=== PATIENT | female | born 1975 | race Caucasian/White ===

== ENCOUNTER 2019-07-24 09:31 | Emergency (ER) | payer SELFPAY ==
--- NOTE | 2019-07-24 10:01 | ER Document Report ---
ED General - General Chief Complaint: Chest Pain Stated Complaint: CHEST PAIN Time Seen by Provider: 07/24/19 09:46 Primary Care Provider: [facility] [Provider Group] - Follow up as needed [facility] [Provider Group] - Follow up as needed DAVON SIMMONS MD [ACTIVE STAFF] - Follow up as needed Notes: Patient is a 43-year-old female with a history of Crohn's, kidney stones who presents to the emergency department with a weird sensation to her heart. Patient reports over the past few days she feels like her heart is skipping beats. Patient reports she does have a history of low potassium and does take 6 potassium pills per day. Patient reports since having her ileum removed from her Crohn's she has had difficulty regulating her potassium, B12 and vitamin D. Patient reports this morning the palpitations and weird sensation in her heart were worse. Patient reports she felt clammy and hot. Patient reports she does have a history of panic attacks but that this feels different. Patient does report some shortness of breath. Patient states she recently moved to the area over the past few months and does not have a primary care physician or a wet trimmer here. Patient reports she was hospitalized 3 times in [place] for her low potassium. Patient denies a history of cardiac issues just palpitations that she was told was from the potassium level. Patient reports due to her Crohn's she does have about 20 episodes of diarrhea per day and that this is normal for her. - Related Data Allergies/Adverse Reactions: No Known Allergies Allergy (Unverified 07/24/19 09:57) Past Medical History - General Information source: Patient - Social History Smoking Status: Unknown if Ever Smoked Lives with: Family Family History: None - Past Medical History Cardiac Medical History: Reports: None Pulmonary Medical History: Reports: None EENT Medical History: Reports: None Neurological Medical History: Reports: None Endocrine Medical History: Reports: None Renal/ Medical History: Reports: Hx Kidney Stones Malignancy Medical History: Reports: None GI Medical History: Reports: Hx Crohn's Disease Musculoskeletal Medical History: Reports None Skin Medical History: Reports None Psychiatric Medical History: Reports: Other - Panic attacks Traumatic Medical History: Reports: None Infectious Medical History: Reports: None Past Surgical History: Reports: Other - Ileum removed d/t crohns Review of Systems - Review of Systems Constitutional: No symptoms reported EENT: No symptoms reported Cardiovascular: See HPI Respiratory: See HPI Gastrointestinal: See HPI Genitourinary: No symptoms reported Female Genitourinary: No symptoms reported Musculoskeletal: No symptoms reported Skin: No symptoms reported Hematologic/Lymphatic: No symptoms reported Neurological/Psychological: No symptoms reported Physical Exam - Vital signs Vitals: Temp 97.8 F 07/24/19 10:09 - Notes Notes: GENERAL: Well-appearing, well-nourished and in no acute distress. HEAD: Atraumatic, normocephalic. EYES: Pupils equal round and reactive to light, extraocular movements intact, sclera anicteric, conjunctiva are normal. ENT: Nares patent, oropharynx clear without exudates. Moist mucous membranes. NECK: Normal range of motion, supple without lymphadenopathy or JVD. LUNGS: Breath sounds clear to auscultation bilaterally and equal. No wheezes rales or rhonchi. HEART: Regular rate and rhythm without murmurs, rubs or gallops. ABDOMEN: Soft, nontender, normoactive bowel sounds. No guarding, no rebound. No masses appreciated. BACK: No cervical, thoracic, lumbar midline tenderness. No saddle anesthesia, normal distal neurovascular exam. GENITOURINARY: Deferred. EXTREMITIES: Normal range of motion, no pitting or edema. No clubbing or cyanosis. NEUROLOGICAL: Cranial nerves II through XII grossly intact. Normal speech, normal gait. PSYCH: Normal mood, normal affect. SKIN: Warm, Dry, normal turgor, no rashes or lesions noted. Course - Re-evaluation Re-evalutation: 07/24/19 10:00 Upon initial assessment patient sitting upright on a stretcher. Patient is able to talk in clear full complete sentences. Patient reports she feels like she is having palpitations and a weird sensation to her heart like it is skipping beats. Patient denies chest pain. Patient currently in a sinus rhythm with a heart rate of 75 with no ectopy. Will obtain basic labs and cardiac work-up. 07/24/19 11:25 Upon reevaluation patient is resting comfortably on stretcher. Still waiting on the patient's TSH and urinalysis to result. Patient's blood work was unremarkable including the potassium level which was normal. Patient reports feeling much better and that the symptoms have since improved. Patient denies palpitations or chest pain. 07/24/19 12:18 Patient continues to deny chest pain or palpitations. Patient's lab work was unremarkable including TSH. Patient reports she does not have [place] insurance as of yet. Patient reports she has been traveling back to [place] to see her primary in the [facility] for her Crohn's and medications. Patient remains in a sinus rhythm with a heart rate of 60. Patient is normotensive, patient is not tachycardic, tachypneic or hypoxic. - Vital Signs Vital signs: Temp Pulse Resp BP Pulse Ox 98.5 F 17 113/78 97 07/24/19 13:01 07/24/19 13:01 07/24/19 13:01 07/24/19 13:01 - Laboratory Result Diagrams: 07/24/19 09:55 07/24/19 09:55 Laboratory results interpreted by me: 07/24/19 07/24/19 07/24/19 09:55 09:55 11:19 RBC 5.50 H Hgb 15.7 H Carbon Dioxide 19 L Anion Gap 22 H Calcium 8.3 L Urine Blood SMALL H Patient's laboratory findings were unremarkable and did not show a leukocytosis, anemia, alteration in electrolytes. Her potassium was specifically a 4.3. Patient's magnesium was also normal. Patient's TSH within normal limits. Urinalysis unremarkable. Laboratory 07/24/19 07/24/19 07/24/19 09:55 09:55 09:55 WBC 8.6 RBC 5.50 H Hgb 15.7 H Hct 45.7 MCV 83 MCH 28.6 MCHC 34.4 RDW 13.0 Plt Count 186 Lymph % (Auto) 30.6 Hardy % (Auto) 7.0 Eos % (Auto) 1.4 Baso % (Auto) 0.7 Absolute Neuts (auto) 5.2 Absolute Lymphs (auto) 2.6 Absolute Monos (auto) 0.6 Absolute Eos (auto) 0.1 Absolute Basos (auto) 0.1 Seg Neutrophils % 60.3 Sodium 139.4 Potassium 4.3 Chloride 98 Carbon Dioxide 19 L Anion Gap 22 H BUN 10 Creatinine 0.67 Est GFR ( Amer) > 60 Est GFR (MDRD) Non-Af > 60 Glucose 92 Calcium 8.3 L Magnesium 1.7 Total Bilirubin 1.1 Direct Bilirubin 0.3 Neonat Total Bilirubin Not Reportable Neonat Direct Bilirubin Not Reportable Neonat Indirect Bili Not Reportable AST 20 ALT 14 Alkaline Phosphatase 63 Troponin I Total Protein 7.8 Albumin 4.9 TSH Serum HCG, Qual NEGATIVE Urine Color Urine Appearance Urine pH Ur Specific Butler Urine Protein Urine Glucose (UA) Urine Ketones Urine Blood Urine Nitrite Urine Bilirubin Urine Urobilinogen Ur Leukocyte Esterase Urine WBC (Auto) Urine RBC (Auto) Urine Bacteria (Auto) Squamous Epi Cells Auto Urine Ascorbic Acid 07/24/19 07/24/19 07/24/19 09:55 09:55 11:19 WBC RBC Hgb Hct MCV MCH MCHC RDW Plt Count Lymph % (Auto) Hardy % (Auto) Eos % (Auto) Baso % (Auto) Absolute Neuts (auto) Absolute Lymphs (auto) Absolute Monos (auto) Absolute Eos (auto) Absolute Basos (auto) Seg Neutrophils % Sodium Potassium Chloride Carbon Dioxide Anion Gap BUN Creatinine Est GFR ( Amer) Est GFR (MDRD) Non-Af Glucose Calcium Magnesium Total Bilirubin Direct Bilirubin Neonat Total Bilirubin Neonat Direct Bilirubin Neonat Indirect Bili AST ALT Alkaline Phosphatase Troponin I < 0.012 Total Protein Albumin TSH 2.07 Serum HCG, Qual Urine Color YELLOW Urine Appearance SLIGHTLY-CLOUDY Urine pH 6.0 Ur Specific Butler 1.004 Urine Protein NEGATIVE Urine Glucose (UA) NEGATIVE Urine Ketones NEGATIVE Urine Blood SMALL H Urine Nitrite NEGATIVE Urine Bilirubin NEGATIVE Urine Urobilinogen NEGATIVE Ur Leukocyte Esterase NEGATIVE Urine WBC (Auto) 2 Urine RBC (Auto) 1 Urine Bacteria (Auto) TRACE Squamous Epi Cells Auto 13 Urine Ascorbic Acid NEGATIVE 07/24/19 12:23 - Diagnostic Test Radiology reviewed: Reports reviewed Radiology results interpreted by me: 07/24/19 12:24 Chest X-Ray 07/24/19 09:58 IMPRESSION: NO ACUTE RADIOGRAPHIC FINDING IN THE CHEST. - EKG Interpretation by Me Additional EKG results interpreted by me: 07/24/19 10:01 Patient EKG shows a sinus rhythm with a heart rate of 68. Patient's AK interval is 136, QT 388 and QTc is 413. Patient has a left axis deviation. Patient does have T wave inversion in lead III but this is not present in consecutive leads. No ST elevation or ectopy noted. There is no old EKG to use for comparison. Discharge - Discharge Clinical Impression: Palpitations Crohns disease Qualifiers: Gastrointestinal tract location: unspecified location Digestive disease complication type: without complication Qualified Code(s): K50.90 - Crohn's disease, unspecified, without complications Condition: Stable Disposition: HOME, SELF-CARE Additional Instructions: Today you are seen in the emergency department for palpitations. Your lab work including your potassium level was unremarkable. We did check a thyroid level which was also normal. Your potassium level today was 4.3. Please continue taking your potassium supplementation as prescribed due to your Crohn's and history of low potassium. Please return to the emergency department immediately if the symptoms return, you develop chest pain, rapid heartbeat, or any new or worsening symptoms. Palpitations (Irregular/Rapid Heartrate) Irregular or rapid heartbeat is called "palpitation." To diagnose the cause of palpitation, we have to "catch it in the act" with an EKG. Sinus Tachycardia: This is a rapid (but NORMAL) rhythm that can be due to fever, pain, anxiety, lack of sleep, over-exertion, or drugs. Cold medications, caffeine, and diet pills are particularly likely to cause tachycardia. Usually, all that's required is rest, reassurance, and avoiding caffeine, alcohol, nicotine, and unnecessary medicines. Premature Beats: Extra beats occur more commonly after caffeine, nicotine, alcohol, cold pills, diet pills. Emotional stress or fatigue also provoke them. Extra beats are only dangerous when heart disease is present. They usually need no treatment. If they're frequent, or if evidence of heart disease deve lops, medication can be given to suppress them. If we were unable to "catch" the palpitations on EKG, you should try to get an EKG immediately if the symptoms begin again. Contact the physician at once if you develop persistent lightheadedness, shortness of breath, chest pain, or swelling of the ankles. Referrals: [facility] [Provider Group] - Follow up as needed [facility] [Provider Group] - Follow up as needed DAVON SIMMONS MD [ACTIVE STAFF] - Follow up as needed
[2019-07-24 10:20] LABS: ABSOLUTE BASOPHILS # (AUTO) 0.1 10^3/uL (0.0-0.2); ABSOLUTE EOSINOPHILS # (AUTO) 0.1 10^3/uL (0.0-0.6); ABSOLUTE LYMPHOCYTES (AUTO) 2.6 10^3/uL (0.5-4.7); ABSOLUTE MONOCYTES (AUTO) 0.6 10^3/uL (0.1-1.4); ABSOLUTE NEUT (AUTO) 5.2 10^3/uL (1.7-8.2); BASOPHILS % (AUTO) 0.7 % (0-2); EOSINOPHILS % (AUTO) 1.4 % (0-6); HEMATOCRIT 45.7 % (36.0-47.0); HEMOGLOBIN 15.7 g/dL (12.0-15.5); LYMPHOCYTES % (AUTO) 30.6 % (13-45); MEAN CORPUSCULAR HEMOGLOBIN 28.6 pg (27.0-33.4); MEAN CORPUSCULAR HGB CONC 34.4 g/dL (32.0-36.0); MEAN CORPUSCULAR VOLUME 83 fl (80-97); PLATELET COUNT 186 10^3/uL (150-450); SEGMENTED NEUTROPHILS % (AUTO) 60.3 % (42-78); TOTAL CELLS COUNTED % (AUTO) 100 %; WHITE BLOOD COUNT 8.6 10^3/uL (4.0-10.5)
--- NOTE | 2019-07-24 10:52 | RADIOLOGY REPORT (SQ) ---
EXAM DESCRIPTION: CHEST 2 VIEWS COMPLETED DATE/TIME: 07/24/2019 10:16 am REASON FOR STUDY: palpitations, shortness of breath COMPARISON: None. EXAM PARAMETERS: NUMBER OF VIEWS: two views TECHNIQUE: Digital Frontal and Lateral radiographic views of the chest acquired. RADIATION DOSE: NA LIMITATIONS: none FINDINGS: LUNGS AND PLEURA: No opacities, masses or pneumothorax. No pleural effusion. MEDIASTINUM AND HILAR STRUCTURES: No masses or contour abnormalities. HEART AND VASCULAR STRUCTURES: Heart normal size. No evidence for failure. BONES: No acute findings. HARDWARE: None in the chest. OTHER: No other significant finding. IMPRESSION: NO ACUTE RADIOGRAPHIC FINDING IN THE CHEST. TECHNICAL DOCUMENTATION: JOB ID: [id number] [employer]- All Rights Reserved Reading location - IP/workstation name: [email or web address]
[2019-07-24 10:53] LABS: ALBUMIN 4.9 g/dL (3.5-5.0); ALKALINE PHOSPHATASE 63 U/L (38-126); ASPARTATE AMINO TRANSFERASE 20 U/L (14-36); BILIRUBIN,DIRECT 0.3 mg/dL (0.0-0.4); BILIRUBIN,TOTAL 1.1 mg/dL (0.2-1.3); BLOOD UREA NITROGEN 10 mg/dL (7-20); CALCIUM 8.3 mg/dL (8.4-10.2); CARBON DIOXIDE 19 mmol/L (22-30); CHLORIDE 98 mmol/L (98-107); GLUCOSE 92 mg/dL (75-110); POTASSIUM 4.3 mmol/L (3.6-5.0); TOTAL PROTEIN 7.8 g/dL (6.3-8.2)
[2019-07-24 10:59] LABS: ANION GAP 22 (5-19)
[2019-07-24] MEDS ORDERED: NORMAL SALINE 1000 ML 1,000 ML IV ONE (11:24)
[2019-07-24 11:39] LABS: APPEARANCE,URINE SLIGHTLY-CLOUDY; BILIRUBIN,URINE NEGATIVE (NEGATIVE); COLOR,URINE YELLOW; GLUCOSE, URINE NEGATIVE (NEGATIVE); KETONES,URINE NEGATIVE (NEGATIVE); LEUKOCYTE ESTERASE,URINE NEGATIVE (NEGATIVE); NITRITE,URINE NEGATIVE (NEGATIVE); PROTEIN,URINE NEGATIVE (NEGATIVE); URINE SPECIFIC GRAVITY 1.004; UROBILINOGEN,URINE NEGATIVE mg/dL (<2.0)
[2019-07-24 13:06] VITALS: BP 113/78
--- NOTE | 2019-07-25 09:09 | EKG REPORT ---
SEVERITY:- ABNORMAL ECG - SINUS RHYTHM LEFT ANTERIOR FASCICULAR BLOCK LOW VOLTAGE IN FRONTAL LEADS : Confirmed by: Melba Casillas 25-Jul-2019 09:08:09
== END 2019-07-24 13:15 | disposition home or self-care (01) ==
LOC: ER 09:31
DX: K50.90 Crohn's disease, unspecified, without complications (principal); R00.2 Palpitations; R07.9 Chest pain, unspecified; Z87.442 Personal history of urinary calculi
CPT/HCPCS: 93005; 99285; 96360; 96361; 36415; 83735; 84443; 84703; 85025; 80053; 81001; 84484; 71046; 93010; J7030